=== PATIENT | female | born 1930 | race African-American/Black ===

== ENCOUNTER 2018-06-03 06:17 | Day surgery (SDC) | payer MEDICARE, MEDICAID ==
--- NOTE | 2018-05-10 10:04 | Pre-Procedure Note/Attestation ---
Pre-Procedure Note/Attestation Complete Prior to Procedure Planned Procedure: left Procedure Narrative: phaco with IOL Indications for Procedure Pre-Operative Diagnosis: cataract Attestation I attest that I discussed the nature of the procedure; its benefits; risks and complications; and alternatives (and the risks and benefits of such alternatives ), prior to the procedure, with the patient (or the patient's legal veterans service representative). I attest that, if there was a reasonable possibility of needing a blood transfusion, the patient (or the patient's legal veterans service representative) was given the [facility] standardized written summary, pursuant to the [place] Blood Safety Act ([place] Health and Safety Code # 1645, as amended). I attest that I re-evaluated the patient just prior to the surgery and that there has been no change in the patient's H&P, except as documented below: MERLE DAVIDSON May 10, 2018 10:04
--- NOTE | 2018-05-10 10:10 | Opthalmology H&P ---
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 MERLE DAVIDSON May 10, 2018 10:10
--- NOTE | 2018-05-29 16:08 | Pre-Procedure Note/Attestation ---
Pre-Procedure Note/Attestation Complete Prior to Procedure Planned Procedure: right Procedure Narrative: phaco with IOL Indications for Procedure Pre-Operative Diagnosis: cataract Attestation I attest that I discussed the nature of the procedure; its benefits; risks and complications; and alternatives (and the risks and benefits of such alternatives ), prior to the procedure, with the patient (or the patient's legal patient accounting representative). I attest that, if there was a reasonable possibility of needing a blood transfusion, the patient (or the patient's legal patient accounting representative) was given the [facility] standardized written summary, pursuant to the [place] Blood Safety Act ([place] Health and Safety Code # 1645, as amended). I attest that I re-evaluated the patient just prior to the surgery and that there has been no change in the patient's H&P, except as documented below: MERLE DAVIDSON May 29, 2018 16:08
[2018-06-03] VITALS (8 sets, daily range): BP systolic 129–151; BP diastolic 65–78
[~2018-06-03] VITALS: Ht 152.4 cm; Wt 66.7 kg
[~2018-06-03 06:17] MED LIST: Akten 3.5% 1ml Btl LEFT EYE ONE; Cyclopentolate 1% Opth Sol 2ml LEFT EYE SCH; Diclofenac Sod 0.1% Op Soln LEFT EYE SCH; Phenylephrine 10% Opth Soln 5ml LEFT EYE SCH; Proparacaine 0.5% Opth Soln 15ml LEFT EYE ONE; Tetracaine 0.5% Opth 4ml Soln LEFT EYE ONE; Tobramycin Op Soln 0.3% 5ml LEFT EYE SCH; Tropicamide 1% Opth 15ml Soln LEFT EYE SCH
[2018-06-03] MEDS ORDERED: Dexamethasone 4mg/ml vial ONE (07:00)
[2018-06-03] MEDS ORDERED: Maxitrol Opth Oint 3.5gm ONE (07:00)
[2018-06-03] MEDS ORDERED: Pilocarpine 2% Opth 15ml Soln ONE (07:00)
[2018-06-03] MEDS ORDERED: Proparacaine 0.5% Opth Soln 15ml RIGHT EYE ONE (07:00)
[2018-06-03] MEDS ORDERED: Tetracaine 0.5% Opth 4ml Soln RIGHT EYE ONE (07:00)
[2018-06-03] MEDS ORDERED: Akten 3.5% 1ml Btl RIGHT EYE ONE (07:00)
[2018-06-03] MEDS ORDERED: Pred Forte 1% Opth Susp 1ml ONE (07:00)
[2018-06-03] MEDS: Cyclopentolate 1% Opth Sol 2ml RIGHT EYE SCH ×3 (08:59→09:19)
[2018-06-03] MEDS: Tobramycin Op Soln 0.3% 5ml RIGHT EYE SCH ×3 (08:59→09:19)
[2018-06-03] MEDS: Tropicamide 1% Opth 15ml Soln RIGHT EYE SCH ×3 (08:59→09:19)
[2018-06-03] MEDS: Diclofenac Sod 0.1% Op Soln RIGHT EYE SCH ×3 (08:59→09:19)
[2018-06-03] MEDS: Phenylephrine 10% Opth Soln 5ml RIGHT EYE SCH ×3 (08:59→09:19)
[2018-06-03] MEDS ORDERED: CLONIDINE HCL0.2 MG PO (09:17)
[2018-06-03] MEDS ORDERED: DIOVAN320 MG ORAL (09:17)
--- NOTE | 2018-06-03 10:36 | Anethesia Preoperative Eval ---
Anesthesia Pre-op PMH/ROS General Date of Evaluation: Jun 03, 2018 Time of Evaluation: 10:33 Anesthesiologist: Suzanne Reid CRNA ASA Score: ASA 2 Mallampati Score Class I : Soft palate, uvula, fauces, pillars visible Class II: Soft palate, uvula, fauces visible Class III: Soft palate, base of uvula visible Class IV: Only hard plate visible Mallampati Classification: Class II Surgeon: Iesha Diagnosis: RIGHT eye cataract Surgical Procedure: RIGHT cataract evacuation, IOL Anesthesia History: none Family History: no anesthesia problems Allergies: Coded Allergies: No Known Allergies (Unverified , 06/03/18) Medications: see eMAR Past Medical History Cardiovascular: Reports: HTN, other - hyperlipidemia; Denies: CAD, [place], valve dz, arrhythmia Pulmonary: Denies: asthma, COPD, PRETTY, other Gastrointestinal/Genitourinary: Reports: other - Colon CA; Denies: GERD, CRI, ESRD Neurologic/Psychiatric: Denies: dementia, CVA, depression/anxiety, TIA, other Endocrine: Denies: DM, hypothyroidism, steroids, other HEENT: Reports: cataract (R); Denies: cataract (L), glaucoma, [place] (L), [place] (R), other Hematology/Immune: Denies: anemia, DVT, bleeding disorder, other Musculoskeletal/Integumentary: Reports: OA; Denies: RA, DJD, DDD, edema, other Other: obesity PMH Narrative: as above PSxH Narrative: LEFT TKA, colon polypectomy Anesthesia Pre-op Phys. Exam Physician Exam Last Vital Signs Date Time Temp Pulse Resp B/P (MAP) Pulse Ox O2 Delivery O2 Flow Rate FiO2 06/03/18 09:03 97.0 69 18 140/78 (98) 100 97.0 06/03/18 09:03 Room Air Constitutional: NAD Neurologic: CN 2-12 intact Cardiovascular: RRR Respiratory: CTA Gastrointestinal: S/NT/ND Airway Exam Mallampati Score: Class II MO: full TMD: > 3 FB ROM: full Teeth: missing Dentures: upper, lower Anesthesia Pre-op A/P Labs see chart WNL Studies Pre-op Studies: EKG - NSR, CXR - Borderline cardiomegaly Risk Assessment & Plan Assessment: ASA 2 ok to proceed Plan: MAC Status Change Before Surgery: No Pre-Antibiotics Given Within 1 Hr of Incision: No Suzanne Reid CRNA Jun 03, 2018 10:36
[2018-06-03] MEDS ORDERED: acetaZOLAMIDE 500mg Inj ONE (10:51)
[2018-06-03] MEDS ORDERED: EPINEPHrine 1mg/1ml Amp ONE (10:51)
[2018-06-03] MEDS ORDERED: BSS 15ml BTL ONE (10:52)
[2018-06-03] MEDS ORDERED: BSS 500ml btl ONE (10:52)
[2018-06-03] MEDS ORDERED: Sodium Hyaluronate 14 mg/ml 0.85ml ONE (10:52)
[2018-06-03] MEDS ORDERED: Povidone-Iodine 5% opth solution ONE (10:52)
[2018-06-03] MEDS ORDERED: Propofol 200mg/20ml IV ONE (11:00)
[2018-06-03] MEDS ORDERED: Midazolam 2mg/2ml Inj ONE ×2 (11:00→11:05)
[2018-06-03] MEDS ORDERED: NS Irrig 1000ml ONE (11:00)
[2018-06-03] MEDS ORDERED: Sterile Water Irrig 1000ml IRRIG ONE (11:00)
[2018-06-03] MEDS ORDERED: LR 1000ml ONE (11:00)
--- NOTE | 2018-06-03 11:55 | Immediate Post-Op Evaluation ---
Immediate Post-Op Evalulation Immediate Post-Op Evalulation Procedure: RIGHT cataract extraction IOL Date of Evaluation: Jun 03, 2018 Time of Evaluation: 11:51 IV Fluids: LR 300 ml Estimated Blood Loss: 0 Blood Pressure Systolic: 129 Blood Pressure Diastolic: 78 Pulse Rate: 66 Respiratory Rate: 19 O2 Sat by Pulse Oximetry: 100 Temperature (Fahrenheit): 97.0 Pain Score (1-10): 0 Nausea: No Vomiting: No Complications none Patient Status: awake, reacts, patent Hydration Status: adequate Given Within 1 Hr of Incision: Suzanne Rodriguez CRNA Jun 03, 2018 11:55
--- NOTE | 2018-06-03 12:50 | 48 Hour Post Anesthesia Eval ---
Post Anesthesia Evaluation Procedure: RIGHT cataract extraction IOL Date of Evaluation: Jun 03, 2018 Time of Evaluation: 12:30 Blood Pressure Systolic: 138 0: 65 Pulse Rate: 68 Respiratory Rate: 20 Temperature (Fahrenheit): 98 O2 Sat by Pulse Oximetry: 100 Airway: patent Nausea: No Vomiting: No Pain Intensity: 0 Hydration Status: adequate Cardiopulmonary Status: stable Mental Status/LOC: patient returned to baseline Follow-up Care/Observations: none Post-Anesthesia Complications: none Follow-up care needed: ready to discharge Suzanne Reid CRNA Jun 03, 2018 12:50
--- NOTE | 2018-06-05 09:14 | Brief Operative Note ---
Immediate Post Operative Note Operative Note Chief Complaint: blurry vision Pre-op Diagnosis: cataract, OS Procedure: phaco with IOL Post-op Diagnosis: pseudophakia Post-op Diagnosis: same as pre-op Findings: consistent w/pre-op dx studies Surgeon: Iesha Anesthesiologist: Jeanette Anesthesia: MAC Specimen: none Complications: none Condition: stable Fluids: LR Estimated Blood Loss: none Drains: none Implant(s) used?: Yes MERLE DAVIDSON Jun 05, 2018 09:14
--- NOTE | 2018-06-05 09:15 | Operative Note - PDOC ---
Operative Note Operative Note Date of Operation/Procedure: Jun 03, 2018 Chief Complaint: blurry vision Pre-op Diagnosis: cataract, OS Procedure: phaco with IOL Post-op Diagnosis: pseudophakia Post-op Diagnosis: same as pre-op Operative Findings: consistent w/pre-op dx studies Surgeon: Iesha Anesthesiologist: Jeanette Anesthesia: MAC Specimen: none Complications: none Condition: stable Fluids: LR Estimated Blood Loss: none Drains: none Implant(s) used?: Yes Indications for Procedure cataract Description of Procedure This patient has been complaining visually significant cataract in the affected eye with the best corrected visual acuity under moderate glare conditions worse. The patient complains of difficulties with glare in performing activities of daily living and wants to manage personal affairs with comfort and accuracy and see well enough to move with safety at home and outdoors. The risks, benefits and alternatives of the procedure were discussed with the patient in the office prior to scheduling surgery. All questions from the patient were answered after the surgical procedure was explained in detail. The risks of the procedure as explained to the patient include, but are not limited to, pain, infection, bleeding, loss of vision, retinal detachment, need for further surgery, loss of lens nucleus, double vision, etc. Alternative procedures were discussed which include, to do nothing or seek a second opinion. Informed consent for this procedure was obtained from the patient. The patient was referred to a primary care physician for a cardiopulmonary clearance prior to surgery, after proper evaluation was done patient was properly scheduled for outpatient surgery. The patient was brought to the operating room where the anesthesiologist established I.V. lines and cardiac monitoring leads. Mild intravenous sedation was administered. The patient was then prepared with a 5% solution of povidone -iodine to the conjunctival fornix and lashes, and a 5% solution of povidone- iodine to the lids and periorbital skin. The patient was then draped in the usual sterile fashion. A lid speculum was then placed in the operative eye. A keratome blade was then used to create a biplanar incision into the anterior chamber. Viscoelastics was then instilled into the anterior chamber. A 3-mm single pass clear corneal incision was made just anterior to the vascular arcade of the temporal limbus using a keratome. Anterior capsulorrhexis was created. The nucleus was hydrodissected and hydrodelineated, and was freely movable in the capsular bag. The lens nucleus was then phacoemulsified. Following the deep groove formation , the lens was split bimanually and the resultant quadrants and epicortex removed under vacuum burst-mode phacoemulsification. Peripheral cortex was removed with the irrigation and aspiration handpiece. The capsular bag was expanded with viscoelastic. The implant was check for proper power and sized. The implant was inspected under the microscope and found to be free of defects. The implant was inserted into the cartridge system under viscoelastic and placed in the capsular bag. The trailing haptic was positioned with the cartridge system. Viscoelastics was removed from the anterior chamber using the irrigation and aspiration unit. The corneal wound was then tested for leaks and none were found. The lid speculum were then removed. Sponge and needle counts were correct. An eye patch and shield were placed over the operative eye. The patient was taken to the recovery room in stable condition. There were no complications. The patient tolerated the procedure well. The patient was then transferred to the ambulatory surgery unit in stable and satisfactory condition , was given detailed written instructions and asked to follow up in the office the next day. MERLE DAVIDSON Jun 05, 2018 09:15
== END 2018-06-03 13:25 | disposition home or self-care (01) ==
LOC: SUR 06:17
DX: H25.812 Combined forms of age-related cataract, left eye (principal); I10 Essential (primary) hypertension; M19.90 Unspecified osteoarthritis, unspecified site; E78.5 Hyperlipidemia, unspecified; E66.9 Obesity, unspecified; J30.9 Allergic rhinitis, unspecified; Z86.73 Personal history of transient ischemic attack (TIA), and cerebral infarction without residual deficits; Z96.642 Presence of left artificial hip joint
CPT/HCPCS: 66984; J0171; J1100; J2250; J2704; J3370; V2632; 94003; 94150